=== PATIENT | female | born 1990 | race Caucasian/White ===

== ENCOUNTER 2024-06-11 16:49 | Emergency (ER) | payer MEDICAID, SELFPAY ==
[2024-06-11 17:07] VITALS: BP 134/91; PULSE 99; RESP 19; TEMP 36.9; O2SAT 97; BMI 37.3
--- NOTE | 2024-06-11 18:03 | PC.NURSE ---
Call pt from lobby and outside no answer @1408
--- NOTE | 2024-06-11 18:20 | PC.NURSE ---
Call pt from lobby and outside no answer @[id number]
--- NOTE | 2024-06-11 18:40 | PC.NURSE ---
Call pt from lobby and outside no answer @3215
== END 2024-06-11 18:40 | disposition left against medical advice (07) ==
LOC: SERX 18:48
PROVIDERS: Emergency Provider Emergency Medicine
DX: Z53.21 Procedure and treatment not carried out due to patient leaving prior to being seen by health care provider (principal)
CPT/HCPCS: 99281

== ENCOUNTER 2025-01-11 15:55 | Emergency (ER) | payer SELFPAY ==
[2025-01-11 16:27] VITALS: BP 137/92; PULSE 64; RESP 17; TEMP 36.6; O2SAT 99; BMI 39.1
--- NOTE | 2025-01-11 16:56 | XR_ITS ---
Examination: Complete OB ultrasound, less than 14 weeks, transabdominal Date and time of exam: January 11, 2025 1702 hours INDICATIONS: Onset vaginal bleeding today Technique: Obstetrical ultrasound images less than 14 weeks performed via transabdominal imaging Findings: A normal shaped single intrauterine gestation is present in the uterus. CRL 0.7 cm corresponds to 6 weeks 4 days gestational age Cardiac motion 129 BPM Adjacent subchorionic hemorrhage 27 x 18 x 30 mm Ultrasonographic survey of visible structures unremarkable. Amniotic fluid volume appears appropriate for this estimated gestational age. Right ovary 2.8 cm arterial flow Left ovary 4.6 cm arterial flow 24 x 18 x 27 mm cyst. IMPRESSION: Fibroids uterine gestation 6 weeks 4 days Recommend short-term follow-up pelvic sonography given the subchorionic hemorrhage
--- NOTE | 2025-01-11 16:56 | PD.EDRME ---
Rapid Medical Screening Exam RME Arrival date/time: 01/11/25 15:55 Chief Complaint: Nausea/Vomiting/Diarrhea Time Seen by Provider: 01/11/25 16:38 Vital signs: Vital Signs Temperature 97.9 F 01/11/25 16:27 Pulse Rate 64 01/11/25 16:27 Respiratory Rate 17 01/11/25 16:27 Blood Pressure 137/92 H 01/11/25 16:27 Pulse Oximetry (%) 99 01/11/25 16:27 Oxygen Delivery Method Room Air 01/11/25 16:27 Vital signs reviewed by provider: Yes RME Narrative: 34 yo F/ presents for evaluation of vaginal spotting in the setting of US verified dated x6 weeks. She endorses nausea and vomiting.
[2025-01-11] MEDS: ONDANSETRON ODT 4 MG TABRAP PO (17:25)
[2025-01-11 17:30] LABS: Basophils # (Auto) 0.1 Thou/mm3 (0.0-0.2); Basophils % (Auto) 1 % (0-2.5); Eosinophils # (Auto) 0.1 Thou/mm3 (0.0-0.5); Eosinophils % (Auto) 1 % (0-10); Hematocrit 40.9 % (36.0-46.0); Immature Granulocytes % (Auto) 0 % (0-0); Immature Granulocytes Auto 0.05 Thou/mm3 (0.00-0.00); Lymphocytes # (Auto) 1.4 Thou/mm3 (1.0-4.8); Lymphocytes % (Auto) 13 % (10-50); Mean Corpuscular HGB Conc 34.2 g/dl (31.0-37.0); Mean Corpuscular Hemoglobin 26.6 pg (25.0-35.0); Mean Corpuscular Volume 78 fL (80-100); Monocytes # (Auto) 0.5 Thou/mm3 (0.0-0.8); Monocytes % (Auto) 4 % (0-12); Neutrophils # (Auto) 9.3 Thou/mm3 (1.8-7.7); Neutrophils % (Auto) 82 % (37-80); Nucleated Red Blood Cell % 0 /100 WBC (0); Platelet Count 235 Thou/mm3 (140-440); RDW Standard Deviation 42.4 fL (36.4-46.3); Red Blood Count 5.27 Miln/mm3 (4.00-5.20); White Blood Count 11.3 Thou/mm3 (3.6-11.0)
[2025-01-11 17:50] LABS: Alanine Aminotransferase 11 U/L (10-49); Albumin, Serum 4.6 gm/dL (3.5-5.0); Albumin/Globulin Ratio 1.5 (1.2-2.2); Alkaline Phosphatase 53 U/L (46-116); Anion Gap 8 (7-16); Aspartate Amino Transferase 10 U/L (0-34); BUN/Creatinine Ratio 6 Ratio (12-20); Bilirubin,Total 0.6 mg/dL (0.3-1.2); Blood Urea Nitrogen 5 mg/dL (9-23); Calcium 9.2 mg/dL (8.3-10.6); Calcium (Corrected) 9.2 mg/dL (8.5-10.1); Carbon Dioxide 25.9 mMol/L (20.0-31.0); Chloride 104 mMol/L (98-107); Creatinine (Component) 0.9 mg/dL (0.6-1.3); Estimated Creatinine Clearance 124.4 mL/min (>60); Globulin 3.1 gm/dL (2.3-3.5); Glucose 98 mg/dL (74-106); Osmolality,Calculated 272 (275-295); Sodium 138 mMol/L (136-145); Total Protein 7.7 gm/dL (5.7-8.2); eGFR > 60 See Note
[2025-01-11 18:26] LABS: Beta HCG,Quantitative 39390 mIU/mL (<5.0)
[2025-01-11 19:57] LABS: Collection Type, Urine Clean Catch
[2025-01-11 20:16] LABS: Bacteria,Urine 4+; Bilirubin,Urine Negative (Negative); Blood,Urine 3+ (Negative); Clarity,Urine Turbid (Clear/Hazy); Color,Urine Yellow (Lt Yel-Yel); Glucose, Urine Negative (Negative); Ketones,Urine Negative (Negative); Leukocyte Esterase,Urine Positive (Negative); Nitrite,Urine Negative (Negative); PH,Urine 6.5 (5.0-7.0); Protein,Urine Trace (Neg - Trace); RBC,Urine 93 /hpf (0-3); Specific Gravity,Urine 1.026 (1.001-1.035); Squamous Epithelial Cell,Urine 29 /hpf (0-5); Urobilinogen,Urine Negative mg/dL (0.0-1.0); WBC,Urine 73 /hpf (0-5)
[2025-01-11 20:20] VITALS: BP 148/77; PULSE 63; RESP 17; TEMP 36.6; O2SAT 100
--- NOTE | 2025-01-11 20:30 | PD.EDNV ---
Nausea/Vomit./Diarrhea-RME/HPI General Chief complaint: Nausea/Vomiting/Diarrhea Stated complaint: Vomiting X 5 days, 6 weeks OB, , spotting Time Seen by Provider: 01/11/25 16:38 Arrival date/time: 01/11/25 15:55 RME / HPI RME / HPI Narrative: 34 yo F/ presents for evaluation of vaginal spotting in the setting of US verified dated x6 weeks. She endorses nausea and vomiting. Patient is 5 para 3 1. Onset of vaginal spotting few minutes prior to ER visit. Denies any pelvic pain denies any other complaints no medications taken prior to arrival. Related Data Previous Rx's ?Medication ?Instructions ?Recorded cephalexin 500 mg capsule 500 mg PO Q8H 7 days #21 caps 01/11/25 ondansetron HCl 4 mg tablet 4 mg PO Q8H PRN nausea and 01/11/25 vomiting 5 days #10 tabs Allergies Allergy/AdvReac Type Severity Reaction Status Date / Time codeine Allergy Mild Anxiety Verified 01/11/25 16:02 hydrocodone Allergy Mild Anxiety Verified 01/11/25 16:02 Review of Systems Review of Systems Narrative Review of Systems: Review of system reviewed and within normal limits except mentioned in HPI ED Exam Narrative Physical exam: VITAL SIGNS: Reviewed. GENERAL APPEARANCE: Alert and interactive, follows commands, no acute distress, HEAD AND FACE: Non-traumatic. ENT: PERRL, pink conjunctivitis, eyelid no trauma, Mucous membrane moist. NECK: Supple, nontender, no nuchal rigidity. CHEST: No tenderness, no crepitus, no paradoxical movement, no retractions. LUNGS: Clear, well ventilated, symmetric, no rales, no wheezing, no ronchi, no stridor, good breath sounds bilaterally. HEART: Regular rate, regular rhythm, no murmur, no gallops. ABDOMEN: Soft, positive bowel sounds, nondistended, no guarding, nontender, no rebound, no masses, RECTAL: Deferred. GENITAL: Deferred. NEUROLOGICAL: Gross motor function intact sensory function intact, Appropriate for age. MUSCULOSKELETAL: low back nontender, full range of motion. EXTREMITIES: Nontender, full range of motion. SKIN: Color pink, dry, no rash, no lacerations, no abrasions, no contusions. LYMPHATICS: Deferred. Course Quality Measures none Orders Category Date Time Status US OB <= 14 weeks fetus Stat Exams 01/11/25 16:56 Completed ABO/RH Type Stat Lab 01/11/25 17:18 Completed Beta HCG,Quantitative Stat Lab 01/11/25 17:18 Completed CBC Stat Lab 01/11/25 17:18 Completed CMP [Comprehensive Metabolic Panel] Stat Lab 01/11/25 17:18 Completed UA [Urinalysis] Stat Lab 01/11/25 19:49 Completed Ondansetron Odt [Zofran Odt] Med 01/11/25 16:56 Discontinued 4 mg PO X1 ONE cephALEXin [Keflex] Med 01/11/25 20:35 Once 500 mg PO X1 ONE Vital Signs Vital signs: Vital Signs Temperature 97.9 F 01/11/25 16:27 Pulse Rate 64 01/11/25 16:27 Respiratory Rate 17 01/11/25 16:27 Blood Pressure 137/92 H 01/11/25 16:27 Pulse Oximetry (%) 99 01/11/25 16:27 Oxygen Delivery Method Room Air 01/11/25 16:27 Nausea/Vomiting/Diarrhea MDM Narrative MDM Narrative:: 34 yo F/ presents for evaluation of vaginal spotting in the setting of US verified dated x6 weeks. She endorses nausea and vomiting. Patient is 5 para 3 1. Onset of vaginal spotting few minutes prior to ER visit. Denies any pelvic pain denies any other complaints no medications taken prior to arrival. Patient received Keflex for UTI Laboratory workup all came back unremarkable except for UTI. Ultrasound showed single live intrauterine gestation about 6 weeks, with subchorionic hemorrhage results discussed with the patient. Told me that her nausea and vomiting went away with Zofran Will be sent home with Keflex Patient data External records reviewed:: None Clinical information provided by:: patient Social determinants that could affect healthcare access:: none Patient has the following chronic illnesses:: None How is presenting disease/condition affected by chronic disease/condition?: exacerbated by Evaluation data The following diagnostics were reviewed and interpreted by me:: lab results and radiology exam(s) Lab and/or radiology exams considered but not ordered:: None Interpretation Summary: Laboratory workup was significant for UTI. Ultrasound of the showed single live intrauterine gestation about 6 weeks gestation, with subchorionic hemorrhage. Medications / Prescriptions Medications / Prescriptions considered but not ordered:: None Medication administrations:: Medication Administration History Cephalexin HCl (Cephalexin 250 Mg Capsule) 500 mg PO X1 ONE Stop: 01/11/25 20:36 Discontinued Medications Ondansetron HCl (Ondansetron Odt 4 Mg Tabrap) 4 mg PO X1 ONE; Protocol Stop: 01/11/25 16:57 Last Admin: 01/11/25 17:25 Dose: 4 mg Documented By: Aakash Saunders Consultations Consultation(s) initiated? (list below): No Diagnosis Nausea Differential Diagnosis: gastroenteritis, dehydration and other (UTI,) Most likely diagnosis given after review of the tests above:: UTI, vaginal bleeding, subchorionic hemorrhage, Admission Indicated Admission indicated?: not indicated Admission Request Was there a request for admission?: No Disposition Plan Disposition Plan: Discharge Discharge Attestation Discharge Attestation: The patient was given an opportunity to ask questions and understood the discharge instructions. Discharge instructions specifically effects, indications for sooner follow up or return to the emergency department, and the expected course of current diagnosis. Patient condition: Stable Discharge Plan Plan Patient Disposition: HOME (Self Care) Discharge Disposition comment: Stable Prescriptions/Referrals Prescriptions/Med Rec: New cephalexin 500 mg capsule 500 mg PO Q8H 7 Days Qty: 21 0RF ondansetron HCl 4 mg tablet 4 mg PO Q8H PRN (Reason: nausea and vomiting) 5 Days Qty: 10 0RF Referrals: Mando Shields MD [Primary Care Provider] - In 1 week Problem List Clinical Impression: UTI (urinary tract infection), Vaginal spotting, , Subchorionic hemorrhage Patient/Caregiver Discharge Instructions Discharge Activity: activity as tolerated Education Materials: Bleeding During Early Additional Instructions: Thank you for the opportunity for serving you today. You are stable for discharged . You are advised to: Follow-up with your CYBER POLICY AND STRATEGY PLANNER in 1 to 2 days Return to ED for worsening of symptoms Increase oral fluids Take medication as prescribed Print Language: Citizen Of [place] Stand Alone Forms: Alexandra Award Info., Patient Portal Info Letter CEE/DHEERAJ Supervising Physician CEE/DHEERAJ Supervising Physician: MD Devonte
== END 2025-01-11 20:54 | disposition home or self-care (01) ==
PROVIDERS: Physician Assistant; Emergency Provider Emergency Medicine; PCP Family Medicine
DX: O23.41 Unspecified infection of urinary tract in pregnancy, first trimester (principal); N39.0 Urinary tract infection, site not specified; O20.8 Other hemorrhage in early pregnancy; Z3A.01 Less than 8 weeks gestation of pregnancy
CPT/HCPCS: 36415; 76801; 80053; 81001; 84702; 85025; 86900; 86901; 99284; Q0162

== ENCOUNTER 2025-01-23 15:17 | Day surgery (SDC) | payer MEDICAID, SELFPAY ==
[2025-01-23] VITALS (11 sets, daily range): BP systolic 97–160; BP diastolic 35–87; PULSE 78–117; RESP 14–20; TEMP 36.2–37.1; O2SAT 97–100
[2025-01-23 16:37] LABS: Basophils # (Auto) 0.1 Thou/mm3 (0.0-0.2); Basophils % (Auto) 1 % (0-2.5); Eosinophils # (Auto) 0.7 Thou/mm3 (0.0-0.5); Eosinophils % (Auto) 4 % (0-10); Hematocrit 28.2 % (36.0-46.0); Hemoglobin 9.5 g/dL (12.0-16.0); Immature Granulocytes Auto 0.07 Thou/mm3 (0.00-0.00); Lymphocytes # (Auto) 6.0 Thou/mm3 (1.0-4.8); Lymphocytes % (Auto) 34 % (10-50); Mean Corpuscular HGB Conc 33.7 g/dl (31.0-37.0); Mean Corpuscular Hemoglobin 26.8 pg (25.0-35.0); Mean Corpuscular Volume 80 fL (80-100); Monocytes # (Auto) 1.3 Thou/mm3 (0.0-0.8); Monocytes % (Auto) 7 % (0-12); Neutrophils # (Auto) 9.3 Thou/mm3 (1.8-7.7); Neutrophils % (Auto) 53 % (37-80); Nucleated Red Blood Cell # 0.00 Thou/mm3 (0.00-0.00); Nucleated Red Blood Cell % 0 /100 WBC (0); Platelet Count 444 Thou/mm3 (140-440); RDW Standard Deviation 45.3 fL (36.4-46.3); Red Blood Count 3.54 Miln/mm3 (4.00-5.20); White Blood Count 17.5 Thou/mm3 (3.6-11.0)
--- NOTE | 2025-01-23 16:38 | PD.EDVAGBL ---
ED OB Contraction Preg RMI/HPI General Chief complaint: General Adult/Misc Complain Stated complaint: 1 WK AGO TOOK PILL, HEAVY BLEEDING SINCE Time Seen by Provider: 01/23/25 15:48 Arrival date/time: 01/23/25 15:17 34-year-old female patient with recent post pill 1 week ago complaining of uncontrollable vaginal bleeding that started this afternoon. Patient states she has filled 3 adult diapers with clots and blood, and a fourth while walking into the ED. She states she feels lightheaded and as though she is going to pass out. Related Data Allergies Allergy/AdvReac Type Severity Reaction Status Date / Time codeine Allergy Mild Anxiety Verified 01/23/25 15:30 hydrocodone Allergy Mild Anxiety Verified 01/23/25 15:30 ED Exam Narrative Physical exam: GENERAL APPEARANCE: alert and oriented x 4, well-developed, well-nourished HEENT: Normocephalic, atraumatic; pupils equal, round, reactive to light; EOMI; mucous membranes pale, moist; oropharynx clear NECK: Supple LUNGS: CTABL; no wheezes, no rales, no rhonchi HEART: Regular rate, regular rhythm; normal S1, S2; no murmurs ABDOMEN: non distended; normal BS; soft, no tenderness, no guarding, no rebound; no masses, no organomegaly, no hernia : Moderate sized blood clots in the vaginal vault, groin and buttocks coated with blood, continuous trickle of blood from the cervix BACK: no CVA tenderness EXTREMITIES: atraumatic; no edema NEUROLOGIC: awake; alert and oriented x4; cranial nerves II-XII grossly intact; no focal sensory or motor deficits PSYCHIATRIC: appropriate mood and affect SKIN: Cool, dry, pallor; no rashes Course Orders Category Date Time Status CBC Stat Lab 01/23/25 16:20 Received CMP [Comprehensive Metabolic Panel] Stat Lab 01/23/25 16:20 Received Type and Screen Stat Lab 01/23/25 16:20 Received Vaginal Bleeding Consultations Consultation(s) initiated? (list below): Yes Consultation #1 (Physician, Specialty, Details): Dr Galvez, gyroscope repairer Will plan for D&C Discharge Plan Patient/Caregiver Discharge Instructions Print Language: [place]
[2025-01-23 16:56] LABS: Alanine Aminotransferase 10 U/L (10-49); Albumin, Serum 4.1 gm/dL (3.5-5.0); Albumin/Globulin Ratio 1.5 (1.2-2.2); Alkaline Phosphatase 45 U/L (46-116); Anion Gap 9 (7-16); Aspartate Amino Transferase 12 U/L (0-34); BUN/Creatinine Ratio 7 Ratio (12-20); Bilirubin,Total 0.4 mg/dL (0.3-1.2); Blood Urea Nitrogen 8 mg/dL (9-23); Calcium 8.8 mg/dL (8.3-10.6); Calcium (Corrected) 8.8 mg/dL (8.5-10.1); Carbon Dioxide 23.9 mMol/L (20.0-31.0); Chloride 109 mMol/L (98-107); Creatinine (Component) 1.2 mg/dL (0.6-1.3); Globulin 2.7 gm/dL (2.3-3.5); Glucose 163 mg/dL (74-106); Osmolality,Calculated 285 (275-295); Potassium 3.4 mMol/L (3.4-5.1); Sodium 142 mMol/L (136-145); Total Protein 6.8 gm/dL (5.7-8.2); eGFR > 60 See Note
--- NOTE | 2025-01-23 17:51 | PD.GYNHP ---
Documentation for date of: 01/23/25 CUSTOMER SOLUTIONS SPECIALIST - HPI History of Present Illness Reason for admission: vaginal bleeding and early complication History of present illness: The patient is a 34-year-old -0-1-3 at approximately 6 weeks estimated gestational age who took some type of pill at home and began bleeding heavily. She presented to the ER. Originally in the ER she had a near syncopal episode and her blood pressure was unable to be obtained. She looks better after a lot of IV fluids. Hemoglobin is 9. Patient had soaked 4 heavy pads prior to coming in and was passing clots when she walked into the ER she continues to bleed. She is consented for a suction dilation and curettage Review of Systems Review of Systems Systems Reviewed: All systems reviewed, normal except as documented Narrative Review of Systems: No fevers, chills ,no abnormal discharge. Patient took some type of medication to bring on an . Patient has been passing clots and bleeding heavily all day. She states a similar thing happened in 2021 with her miscarriage. Past Medical History Past Medical History Comments PMH COMMENT: Patient states she has asthma and uses an albuterol inhaler daily. She denies any other chronic medical problem except for she states she had a stroke in 2022 6 months after she had her last baby. She states they picked up some type of bleed on the study. She states she had blood in her brain . She is not on medications for hypertension. She stated with the baby in 2022 she was induced for hypertension. She is a status post vaginal delivery x 3 in the past. She has a teenager followed by a 4-year-old and a 2-year-old. She had a laparoscopic bilateral ovarian cystectomy with Dr. Villarreal either in 2006 or 2007 She had a suction D&C for a 9-week incomplete AB in 2021 Meds Home Medications and Allergies Allergies Allergy/AdvReac Type Severity Reaction Status Date / Time codeine Allergy Mild Anxiety Verified 01/23/25 15:30 hydrocodone Allergy Mild Anxiety Verified 01/23/25 15:30 Exam - CUSTOMER SOLUTIONS SPECIALIST Vital Signs Temp Pulse Resp BP Pulse Ox O2 Del Method 98.7 F 78 16 97/35 L 97 Room Air 01/23/25 17:39 01/23/25 17:44 01/23/25 17:44 01/23/25 17:44 01/23/25 17:44 01/23/25 17:44 Narrative Exam Patient is alert and oriented x 3 Constitutional Constitutional: mild distress Comments: Patient is comfortable and asked questions appropriately. She has a lot of blood on her thighs. Pelvic exam is deferred. She has blood on the Chux and active bleeding noted. Routine Abdominal Exam Abdominal: Present soft CUSTOMER SOLUTIONS SPECIALIST - Results Labs 01/23/25 16:20 01/23/25 16:20 Labs: Short CBC 01/23/25 Range/Units 16:20 WBC 17.5 H (3.6-11.0) Thou/mm3 Hgb 9.5 L (12.0-16.0) g/dL Hct 28.2 L (36.0-46.0) % Plt Count 444 H D (140-440) Thou/mm3 BMP 01/23/25 16:20 Sodium 142 Potassium 3.4 Chloride 109 H Carbon Dioxide 23.9 BUN 8 L Creatinine 1.2 Glucose 163 H Calcium 8.8 Liver Function 01/23/25 Range/Units 16:20 Total Bilirubin 0.4 (0.3-1.2) mg/dL AST 12 (0-34) U/L ALT 10 (10-49) U/L Alkaline Phosphatase 45 L (46-116) U/L Albumin 4.1 (3.5-5.0) gm/dL Assessment and Plan Assessment and plan (1) Incomplete : Status: Acute Assessment and plan: To the OR for a suction dilation and curettage consented for the risks of the procedure including bleeding infection blood transfusion damage to bowel bladder blood vessels other organs prolonged hospital stay and further surgery should any above occur all questions were answered all consents were signed. The surgical team was called in at approximately 1730. Quality Measures Quality Measures none
--- NOTE | 2025-01-23 19:04 | SUR.PHASEI ---
1904: Pt. arrived with oral airway in place, vitals stable, breathing labored, overriding albuterol for breathing treatment, anesthesia provider and OR cyber analyst at bedside helping, peripad in place with moderate amount of blood, changed peripad with new one to see amount of blood during recovery stay, report received from William ESCOBAR and Andrew MESA.
[2025-01-23] MEDS: ALBUTEROL RT 2.5 MG/3 ML NEBU INH (19:09)
[2025-01-23] MEDS: ACETAMINOPHEN IVPB 1,000 MG/100 ML VIAL 250 MG IV (19:25)
[2025-01-23] MEDS: ONDANSETRON INJ 2 MG/ML INJ 2 ML 4 MG IVP (19:32)
--- NOTE | 2025-01-23 20:01 | ESOP_ITS ---
Operative Note - DIRECTOR WHOLESALE Procedure Date of procedure: 01/23/25 Procedure Performed: Suction dilation and curettage Indication: Incomplete AB with heavy bleeding and near syncope. The patient is a 34-year-old -0-1-3 who took an pill recently. She was about 8 weeks . She had an ultrasound 01/11/2025 in the ER revealing a 6-week IUP with heart tones. Patient presented today with heavy vaginal bleeding. Her blood pressure was extremely low on presentation and almost unable to be obtained. She was extremely pale. Her hemoglobin on the was 13 today it was 9. As they are having difficulty maintaining her blood pressure without a lot of IV fluids and she was still heavily bleeding she was consented for an emergent suction dilation and curettage Pre-Op diagnosis: Intrauterine at 8 weeks Incomplete AB Rh+ blood type Post-Op diagnosis: Same Anesthesia type: General Procedure description: After obtaining informed consent, the patient was brought back to the operating room and general anesthesia administered. She was then prepped and draped in the dorsal lithotomy position using candycane stirrups in a normal sterile fashion. Patient had her bladder emptied with an in and out catheter. The patient was given 2 g of Ancef by anesthesia. A weighted speculum inserted the patient's vagina and the anterior lip of the cervix grasped with a single-tooth tenaculum the 12 o'clock position the cervix was then gently dilated using Hegar dilators to a size 8. A size 8 suction curette was introduced to the fundus uterus and the suction rotated to clear the uterus of any clots and debris. This was removed the patient's endometrium under went brisk endometrial curettage using a wide loop endometrial curette. The scrapings were sent down to pathology. The suction curette was introduced 1 more time and the uterus cleared of any remaining clots and debris. All instrumentation was then removed from the patient's vagina and the tenaculum site noted to be hemostatic. The patient tolerated the procedure well, sponge, lap, needle, instrument counts were correct x 2. The patient went to the recovery area awake and in stable condition pathology was products of conception. Specimen: other (Products of conception) Implants: None Estimated blood loss (ml): 100 Findings: Moderate amounts of products of conception and clots Complications: none Surgical staff Operation Date: 01/23/25 18:00 Case Staff HEAD OF ETHICS AND COMPLIANCE: Bennie Moore Diagnosis Discharge Diagnosis (1) Incomplete : Status: Acute Problem details: Patient presented to the emergency room with heavy vaginal bleeding pale and with very low blood pressure. She was consented for an emergent suction dilation curettage. She was consented. She had the procedure performed successfully. She will be discharged home once she recovers from anesthesia. Problem List Completed Was Problem List Reviewed/Reconciled?: Yes
[2025-01-23] MEDS: PROMETHAZINE INJ 12.5 MG in SODIUM CHLORIDE 0.9% 50 ML 2.5 MG IV (20:05)
--- NOTE | 2025-01-23 20:15 | ESDS_ITS ---
Planned Discharge Date 01/23/25 DS: Providers Provider Date of admission: 01/23/25 Primary care physician: Mando Shields MD Attending Provider on Admission: Priya Galvez MD ([facility]) Attending Provider on DC: Priya Galvez MD ([facility]) Discharging Provider: Priya Galvez MD ([facility]) Anticipated date of discharge: 01/23/25 DS: Diagnosis Discharge Diagnosis (1) Incomplete : Status: Acute Assessment & Plan: Status post suction D&C. Discharge home postoperative day #0. Problem List Completed Was Problem List Reviewed/Reconciled?: Yes Hospital Course Hospital Course Hospital course: The patient is a 34-year-old -0-1-3 at approximately 6 weeks estimated gestational age who took some type of pill at home and began bleeding heavily. She presented to the ER. Originally in the ER she had a near syncopal episode and her blood pressure was unable to be obtained. She looks better after a lot of IV fluids. Hemoglobin is 9. Patient had soaked 4 heavy pads prior to coming in and was passing clots when she walked into the ER she continues to bleed. She is consented for a suction dilation and curettage Patient underwent a suction dilation curettage approximately 2 hours after admission to the ER. Please see op report for further details. She did well postoperatively and was discharged home approximately an hour or 2 after surgery. Status at Discharge Cognitive/behavioral status at discharge: Stable Functional status at discharge: independent ambulation Overall status at discharge: patient is progressing back to baseline Time Spent with Patient Time attestation: Total time spent providing and/or coordinating discharge services: Time spent: Less than 30 minutes Specific discharge activities: Pelvic rest x 2 weeks Exam - MOTOR COACH TOUR OPERATOR Vital Signs Temp Pulse Resp BP Pulse Ox O2 Del Method O2 Flow Rate 97.2 F 86 14 144/80 H 100 Room Air 6 01/23/25 19:49 01/23/25 19:49 01/23/25 19:49 01/23/25 19:49 01/23/25 19:49 01/23/25 17:44 01/23/25 19:19 Discharge Plan Plan Patient Disposition: HOME (Self Care) Disposition Comment: Stable Prescriptions/Referrals Referrals: [facility] ([facility]),Priya Medley MD [Physician] - Mando Shields MD [Primary Care Provider] - In 1 week Patient/Caregiver Discharge Instructions Discharge Activity: activity as tolerated Other Discharge Activity Instructions:: Pelvic rest x 2 weeks. Other Discharge Diet Instructions: Eat iron rich foods Education Materials: Anesthesia: General Anesthesia, Surgery Anesthesia After, Dilation and Curettage, Preventing Surgical Site Infections, [facility] General TXC Instructions- [place] Print Language: [place] Activity Restrictions/Additional Instructions: Pelvic rest x 2 weeks no intercourse tampons douching bathtubs swimming pools x 2 weeks. Stand Alone Forms: Alexandra Award Info., Patient Portal Info Letter, DC from Surgery Discharge Order Discharge Orders: Discharge (Routine); Ordered 01/23/25 Ordered By: Priya Galvez ([facility])
--- NOTE | 2025-01-23 20:40 | SUR.PHASEII ---
Pt. AAOx4, vitals stable, breathing unlabored, no complaint of pain or nausea, peripad in place with minimal amount of blood, educated pt. on how much blood to expect and what to do if she bleeds more than the expected amount or if she has blood clots. Pt. verbalized understanding to go to the ER if she bleeds too much. Pt. tolerated sips of water well, pt. ambulated to wheelchair with steady gait and no assist, no complications. Gave discharge instructions to the pt. and her ride, both verbalized understanding and had no further questions. No belongings paper was filled, pt. family held onto pt. belongings the entire time.
== END 2025-01-23 20:40 | disposition home or self-care (01) ==
LOC: SERX 17:40 → S2EX 18:27
PROVIDERS: Emergency Provider Emergency Medicine; PCP Family Medicine; Visit Provider Obstetrics & Gynecology
PROC: (CPT 58120; principal; 2025-01-23 18:00)
DX: O03.4 Incomplete spontaneous abortion without complication (principal); Z3A.08 8 weeks gestation of pregnancy
CPT/HCPCS: 59812; 36415; 80053; 85025; 86850; 86900; 86901; 99285; A4217; J0131; J0690; J1100; J2210; J2250; J2405; J2550; J2704; J2765; J3010; J3490